=== PATIENT | male | born 1960 | race African-American/Black ===

== ENCOUNTER 2016-12-04 11:52 | Emergency (ER) | payer BC, OTHER ==
[~2016-12-04] VITALS: Ht 175.3 cm; Wt 72.6 kg
[~2016-12-04 11:52] MED LIST: NO MEDS
[2016-12-04 12:04] VITALS: BP 123/64
== END 2016-12-04 12:34 | disposition home or self-care (01) ==
LOC: ER 11:55
DX: F41.9 Anxiety disorder, unspecified (principal); F32.9 Major depressive disorder, single episode, unspecified; F17.200 Nicotine dependence, unspecified, uncomplicated; Z76.0 Encounter for issue of repeat prescription
CPT/HCPCS: 99284; 99406; A4606; Z7610

== ENCOUNTER 2021-08-22 16:23 | Emergency (ER) | payer OTHER ==
[~2021-08-22] VITALS: Ht 167.6 cm; Wt 68.0 kg
[2021-08-22 16:37] VITALS: BP 140/97
[2021-08-22] MEDS ORDERED: LORAZEPAM 1 MG TABLET ONE (17:25)
[2021-08-22] MEDS ORDERED: LORAZEPAM 1 MG TABLET PO ONE (17:30)
== END 2021-08-22 17:51 | disposition home or self-care (01) ==
LOC: ER 17:02
DX: F41.9 Anxiety disorder, unspecified (principal); Z76.0 Encounter for issue of repeat prescription; F32.9 Major depressive disorder, single episode, unspecified